=== PATIENT | female | born 1965 | race Caucasian/White ===

== ENCOUNTER 2016-09-17 11:17 | Inpatient (IN) | payer MEDICARE, MEDICAID ==
[2016-09-17] MEDS ORDERED: NS 0.9% 1000 ML* 1,000 ML IV ONE (11:56)
[2016-09-17] MEDS ORDERED: LORazepam INJ* 2 MG/ML 1 ML VIAL IV PUSH ONE ×2 (12:12→15:41)
[2016-09-17 12:36] LABS: Hematocrit 42 % (35-47); Hemoglobin 14.2 g/dl (12.0-16.0); Mean Corpuscular HGB Conc 34 g/dl (31-36); Mean Corpuscular Hemoglobin 34 pg (27-31); Mean Corpuscular Volume 101 fL (80-97); Mean Platelet Volume 9 um3 (7.4-10.4); Red Blood Count 4.15 10^6/ul (4.0-5.4); Red Cell Distribution Width 14 % (10.5-15); White Blood Count 6.8 10^3/ul (3.5-10.8)
[2016-09-17 12:54] LABS: ALT 14 U/L (7-52); AST 25 U/L (13-39); Albumin 4.6 g/dL (3.2-5.2); Alkaline Phosphatase 78 U/L (34-104); Anion Gap 12 mmol/L (2-11); BUN/Creatinine Ratio 13.2 (8-20); Blood Urea Nitrogen 12 mg/dL (6-24); CO2 Carbon Dioxide 21 mmol/L (22-32); Calcium 9.9 mg/dL (8.6-10.3); Chloride 103 mmol/L (101-111); Creatine Kinase 1417 U/L (10-223); EGFR African American 84.2 (>60); EGFR Non-African American 65.4 (>60); Globulin 3.3 g/dL (2-4); Glucose 114 mg/dL (70-100); Potassium 3.3 mmol/L (3.5-5.0); Sodium 136 mmol/L (133-145); Total Protein 7.9 g/dL (6.4-8.9)
[2016-09-17 13:14] LABS: Acetaminophen < 15 mcg/mL; Alcohol < 10 mg/dL (<10); Salicylate < 2.50 mg/dL (<30)
[2016-09-17] MEDS ORDERED: NS 0.9% 1000 ML* 2,000 ML IV ONE (13:21)
[2016-09-17 13:24] LABS: TSH (Thyroid Stimulating Horm) 0.38 mcIU/mL (0.34-5.60)
--- NOTE | 2016-09-17 13:37 | RAD ---
INDICATION: Shortness of breath. COMPARISON: There are no prior studies available for comparison. TECHNIQUE: Dual-energy PA and lateral views of the chest were obtained. FINDINGS: The heart is within normal limits in size. Mediastinal and hilar contours appear within normal limits. The lungs are hyperinflated and clear. There is a surgical suture line present at the left pulmonary apex. There is mild flattening of the diaphragms. No pleural effusion or pneumothorax is seen. IMPRESSION: 1. FINDINGS CONSISTENT WITH COPD, NO EVIDENCE FOR ACUTE FINDING. 2. POSTSURGICAL CHANGES.
[2016-09-17] MEDS ORDERED: Potassium Chlor TAB* 20 MEQ TAB.ER PO ONE (15:36)
[2016-09-17 18:03] LABS: Urine Bacteria Absent (Absent); Urine Bilirubin Negative (Negative); Urine Glucose 1+(50 mg/dL) (Negative); Urine Nitrite Negative (Negative)
[2016-09-17 18:04] LABS: Benzodiazepine Urine Screen None Detected (None Detect)
--- NOTE | 2016-09-17 18:48 | ED ---
Maria Luz Rubi Edward, scribed for Gordon Nicole MD on 09/17/16 at 1157 . Psychiatric Complaint - HPI Summary HPI Summary: 51 y/o female presents to ED c/o SI and SOB. Patient states she "doesn't want to live". Patient's SOB started last night but got worse about an hour ago. Associated sx: CP on the left side that started a while ago, loss of appetite, sleep disturbance. Denies that she hears voices. Patient is a smoker and uses EtOH. No drug use. PMHx collapsed L lung, asthma, COPD and depression. No [place] history. SHx lung repair. Patient is allergic to aspirin. - History Of Current Complaint Chief Complaint: EDMentalHealth Time Seen by Provider: 09/17/16 11:48 Hx Obtained From: Patient Onset/Duration: Gradual Onset, Still Present Timing: Constant Character: Depressed - SI Associated Signs And Symptoms: Positive: Sleep Disturbance, Appetite Change Has Suicidal: Reports: Thoughts - Allergies/Home Medications Allergies/Adverse Reactions: Allergies Allergy/AdvReac Type Severity Reaction Status Date / Time Aspirin Allergy Intermediate Hives Verified 09/17/16 12:06 PMH/Surg Hx/FS Hx/Imm Hx Previously Healthy: No Cardiovascular History: Denies: Hx Myocardial Infarction Respiratory History: Reports: Hx Asthma, Hx Chronic Obstructive Pulmonary Disease (COPD) Psychiatric History: Reports: Hx Depression Infectious Disease History: Denies: Traveled Outside the [place] in Last 30 Days - Family History Known Family History: Positive: Hypertension - Mother, Other - Leukemia (mother) - Social History Alcohol Use: Occasionally Hx Substance Use: No Substance Use Type: Reports: None Hx Tobacco Use: Yes Smoking Status (MU): Current Every Day Smoker Type: Cigarettes Review of Systems Constitutional: Negative Eyes: Negative ENT: Negative Positive: Chest Pain Positive: Shortness Of Breath Gastrointestinal: Negative Genitourinary: Negative Musculoskeletal: Negative Skin: Negative Neurological: Negative Psychological: Other Positive: Depressed - SI, Other - Loss of appetite and sleep disturbance. Denies that she hears voices All Other Systems Reviewed And Are Negative: Yes Physical Exam - Summary Physical Exam Summary: The patient is well-nourished in mild distress and in no acute pain. The skin is warm and skin color reflects adequate perfusion. The patient is slightly diaphoretic. There is no cyanosis. HEENT: The head is normocephalic and atraumatic. The pupils are equal and reactive. The conjunctivae are clear and without drainage. Nares are patent and without drainage. Mouth reveals moist mucous membranes and the throat is without erythema and exudate. The external ears are intact. The ear canals are patent and without drainage. The tympanic membranes are intact. Neck is supple with full range of motion and non-tender. There is no subcutaneous air. There is no neck vein distension. Respiratory: Chest is non-tender. There are decreased breath sounds in the L lung. The R lung is clear. Cardiovascular: Hear is regular rate and rhythm. There is no murmur or rub auscultated. There is no peripheral edema and pulses are symmetrical and equal. Abdomen: The abdomen is soft and non-tender. There are normal bowel sounds heard in all four quadrants and there is no organomegaly palpated. Musculoskeletal: There is no back pain noted. Extremities are non-tender with full range of motion. There is good capillary refill. There is no peripheral edema or calf tenderness elicited. Neurological: Patient is alert and oriented to person, place and time. The patient has symmetrical motor strength in all four extremities. Cranial nerves are grossly intact. Deep tendon reflexes are symmetrical and equal in all four extremities. Psychiatric: The patient has an appropriate affect but is depressed. Triage Information Reviewed: Yes Vital Signs On Initial Exam: Initial Vitals Temp Pulse Resp BP Pulse Ox 98.3 F 95 24 100/60 100 09/17/16 11:32 09/17/16 11:32 09/17/16 11:32 09/17/16 11:32 09/17/16 11:32 Vital Signs Reviewed: Yes Diagnostics - Vital Signs Vital Signs Temp Pulse Resp BP Pulse Ox 09/17/16 11:32 98.3 F 95 24 100/60 100 - Laboratory Lab Results: Lab Results 09/17/16 09/17/16 09/17/16 Range/Units 12:20 12:20 12:20 WBC 6.8 (3.5-10.8) 10^3/ul RBC 4.15 (4.0-5.4) 10^6/ul Hgb 14.2 (12.0-16.0) g/dl Hct 42 (35-47) % MCV 101 H (80-97) fL MCH 34 H (27-31) pg MCHC 34 (31-36) g/dl RDW 14 (10.5-15) % Plt Count 306 (150-450) 10^3/ul MPV 9 (7.4-10.4) um3 Neut % (Auto) 52.4 (38-83) % Lymph % (Auto) 40.6 (25-47) % [place] % (Auto) 6.2 (1-9) % Eos % (Auto) 0.2 (0-6) % Baso % (Auto) 0.6 (0-2) % Absolute Neuts (auto) 3.5 (1.5-7.7) 10^3/ul Absolute Lymphs (auto) 2.8 (1.0-4.8) 10^3/ul Absolute Monos (auto) 0.4 (0-0.8) 10^3/ul Absolute Eos (auto) 0 (0-0.6) 10^3/ul Absolute Basos (auto) 0 (0-0.2) 10^3/ul Absolute Nucleated RBC 0 10^3/ul Nucleated RBC % 0.1 INR (Anticoag Therapy) (0.89-1.11) Sodium 136 (133-145) mmol/L Potassium 3.3 L (3.5-5.0) mmol/L Chloride 103 (101-111) mmol/L Carbon Dioxide 21 L (22-32) mmol/L Anion Gap 12 H (2-11) mmol/L BUN 12 (6-24) mg/dL Creatinine 0.91 (0.51-0.95) mg/dL Est GFR ( Amer) 84.2 (>60) Est GFR (Non-Af Amer) 65.4 (>60) BUN/Creatinine Ratio 13.2 (8-20) Glucose 114 H (70-100) mg/dL Calcium 9.9 (8.6-10.3) mg/dL Total Bilirubin 0.50 (0.2-1.0) mg/dL AST 25 (13-39) U/L ALT 14 (7-52) U/L Alkaline Phosphatase 78 (34-104) U/L Total Creatine Kinase 1417 H (10-223) U/L Troponin I 0.00 (<0.04) ng/mL B-Natriuretic Peptide 62 ( - 100) pg/mL Total Protein 7.9 (6.4-8.9) g/dL Albumin 4.6 (3.2-5.2) g/dL Globulin 3.3 (2-4) g/dL Albumin/Globulin Ratio 1.4 (1-3) TSH 0.38 (0.34-5.60) mcIU/mL Urine Color Urine Appearance Urine pH (5-9) Ur Specific [place] (1.010-1.030) Urine Protein (Negative) Urine Ketones (Negative) Urine Blood (Negative) Urine Nitrate (Negative) Urine Bilirubin (Negative) Urine Urobilinogen (Negative) Ur Leukocyte Esterase (Negative) Urine WBC (Auto) (Absent) Urine RBC (Auto) (Absent) Ur Squamous Epith Cells (Absent) Urine Bacteria (Absent) Urine Glucose (Negative) Salicylates < 2.50 (<30) mg/dL Urine Opiates Screen (None Detect) Acetaminophen < 15 mcg/mL Ur Barbiturates Screen (None Detect) Ur Phencyclidine Scrn (None Detect) Ur Amphetamines Screen (None Detect) U Benzodiazepines Scrn (None Detect) Urine Cocaine Screen (None Detect) U Cannabinoids Screen (None Detect) Serum Alcohol < 10 (<10) mg/dL 09/17/16 09/17/16 09/17/16 Range/Units 12:20 16:24 17:26 WBC (3.5-10.8) 10^3/ul RBC (4.0-5.4) 10^6/ul Hgb (12.0-16.0) g/dl Hct (35-47) % MCV (80-97) fL MCH (27-31) pg MCHC (31-36) g/dl RDW (10.5-15) % Plt Count (150-450) 10^3/ul MPV (7.4-10.4) um3 Neut % (Auto) (38-83) % Lymph % (Auto) (25-47) % [place] % (Auto) (1-9) % Eos % (Auto) (0-6) % Baso % (Auto) (0-2) % Absolute Neuts (auto) (1.5-7.7) 10^3/ul Absolute Lymphs (auto) (1.0-4.8) 10^3/ul Absolute Monos (auto) (0-0.8) 10^3/ul Absolute Eos (auto) (0-0.6) 10^3/ul Absolute Basos (auto) (0-0.2) 10^3/ul Absolute Nucleated RBC 10^3/ul Nucleated RBC % INR (Anticoag Therapy) 0.95 (0.89-1.11) Sodium (133-145) mmol/L Potassium (3.5-5.0) mmol/L Chloride (101-111) mmol/L Carbon Dioxide (22-32) mmol/L Anion Gap (2-11) mmol/L BUN (6-24) mg/dL Creatinine (0.51-0.95) mg/dL Est GFR ( Amer) (>60) Est GFR (Non-Af Amer) (>60) BUN/Creatinine Ratio (8-20) Glucose (70-100) mg/dL Calcium (8.6-10.3) mg/dL Total Bilirubin (0.2-1.0) mg/dL AST (13-39) U/L ALT (7-52) U/L Alkaline Phosphatase (34-104) U/L Total Creatine Kinase 984 H (10-223) U/L Troponin I (<0.04) ng/mL B-Natriuretic Peptide ( - 100) pg/mL Total Protein (6.4-8.9) g/dL Albumin (3.2-5.2) g/dL Globulin (2-4) g/dL Albumin/Globulin Ratio (1-3) TSH (0.34-5.60) mcIU/mL Urine Color Yellow Urine Appearance Clear Urine pH 6.0 (5-9) Ur Specific [place] 1.021 (1.010-1.030) Urine Protein Negative (Negative) Urine Ketones Trace H (Negative) Urine Blood Negative (Negative) Urine Nitrate Negative (Negative) Urine Bilirubin Negative (Negative) Urine Urobilinogen Negative (Negative) Ur Leukocyte Esterase Trace H (Negative) Urine WBC (Auto) Trace(0-5/hpf) (Absent) Urine RBC (Auto) Absent (Absent) Ur Squamous Epith Cells Present H (Absent) Urine Bacteria Absent (Absent) Urine Glucose 1+(50 mg/dl) H (Negative) Salicylates (<30) mg/dL Urine Opiates Screen (None Detect) Acetaminophen mcg/mL Ur Barbiturates Screen (None Detect) Ur Phencyclidine Scrn (None Detect) Ur Amphetamines Screen (None Detect) U Benzodiazepines Scrn (None Detect) Urine Cocaine Screen (None Detect) U Cannabinoids Screen (None Detect) Serum Alcohol (<10) mg/dL 09/17/16 Range/Units 17:26 WBC (3.5-10.8) 10^3/ul RBC (4.0-5.4) 10^6/ul Hgb (12.0-16.0) g/dl Hct (35-47) % MCV (80-97) fL MCH (27-31) pg MCHC (31-36) g/dl RDW (10.5-15) % Plt Count (150-450) 10^3/ul MPV (7.4-10.4) um3 Neut % (Auto) (38-83) % Lymph % (Auto) (25-47) % [place] % (Auto) (1-9) % Eos % (Auto) (0-6) % Baso % (Auto) (0-2) % Absolute Neuts (auto) (1.5-7.7) 10^3/ul Absolute Lymphs (auto) (1.0-4.8) 10^3/ul Absolute Monos (auto) (0-0.8) 10^3/ul Absolute Eos (auto) (0-0.6) 10^3/ul Absolute Basos (auto) (0-0.2) 10^3/ul Absolute Nucleated RBC 10^3/ul Nucleated RBC % INR (Anticoag Therapy) (0.89-1.11) Sodium (133-145) mmol/L Potassium (3.5-5.0) mmol/L Chloride (101-111) mmol/L Carbon Dioxide (22-32) mmol/L Anion Gap (2-11) mmol/L BUN (6-24) mg/dL Creatinine (0.51-0.95) mg/dL Est GFR ( Amer) (>60) Est GFR (Non-Af Amer) (>60) BUN/Creatinine Ratio (8-20) Glucose (70-100) mg/dL Calcium (8.6-10.3) mg/dL Total Bilirubin (0.2-1.0) mg/dL AST (13-39) U/L ALT (7-52) U/L Alkaline Phosphatase (34-104) U/L Total Creatine Kinase (10-223) U/L Troponin I (<0.04) ng/mL B-Natriuretic Peptide ( - 100) pg/mL Total Protein (6.4-8.9) g/dL Albumin (3.2-5.2) g/dL Globulin (2-4) g/dL Albumin/Globulin Ratio (1-3) TSH (0.34-5.60) mcIU/mL Urine Color Urine Appearance Urine pH (5-9) Ur Specific [place] (1.010-1.030) Urine Protein (Negative) Urine Ketones (Negative) Urine Blood (Negative) Urine Nitrate (Negative) Urine Bilirubin (Negative) Urine Urobilinogen (Negative) Ur Leukocyte Esterase (Negative) Urine WBC (Auto) (Absent) Urine RBC (Auto) (Absent) Ur Squamous Epith Cells (Absent) Urine Bacteria (Absent) Urine Glucose (Negative) Salicylates (<30) mg/dL Urine Opiates Screen None detected (None Detect) Acetaminophen mcg/mL Ur Barbiturates Screen None detected (None Detect) Ur Phencyclidine Scrn None detected (None Detect) Ur Amphetamines Screen None detected (None Detect) U Benzodiazepines Scrn None detected (None Detect) Urine Cocaine Screen None detected (None Detect) U Cannabinoids Screen Presumptive positive H (None Detect) Serum Alcohol (<10) mg/dL Result Diagrams: 09/17/16 12:20 09/17/16 12:20 Lab Statement: Any lab studies that have been ordered have been reviewed, and results considered in the medical decision making process. - Radiology CXR Xray Interpretation: Positive (See Comments) - 1. FINDINGS CONSISTENT WITH COPD , NO EVIDENCE FOR ACUTE FINDING. 2. POSTSURGICAL CHANGES. Radiology Interpretation Completed By: Radiologist - EKG 1 EKG Interpretation: 12:06 - Regular rhythm. Normal axis, no ST abnormalities Course/Dx - Course Assessment/Plan: 51 y/o female presents to ED c/o SI and SOB. Patient states she "doesn't want to live". EKG - 12:06 - Regular rhythm. Normal axis, no ST abnormalities. CXR showed 1. FINDINGS CONSISTENT WITH COPD, NO EVIDENCE FOR ACUTE FINDING. 2. POSTSURGICAL CHANGES. pt was administered normal saline x 3000ml with decreased ck with no renal failure. Patient was medically cleared for MHU evaluation by Dr. Gordon Nicole @ 17:17. Pending MHU evalutaion. - Differential Dx/Clinical Impression Differential Diagnosis/HQI/PQRI: Positive: Depression, Suicidal Ideation, Other - pneumothorax, rhabdomylosis Provider Diagnosis: Depression, Dehydration, Rhabdomyolysis, Hypokalemia Provider Diagnosis: (Ruled Out): Hyponatremia Discharge - Discharge Plan Condition: Stable Disposition: OTHER Discharge Disposition Comment: pending MHE Patient Education Materials: Depression (ED), Dehydration (ED) Referrals: Eliud Albert MD [Primary Care Provider] - The documentation as recorded by the Maria Luz casillas Edward accurately reflects the service I personally performed and the decisions made by Corey veras Drew, MD.
[2016-09-17] MEDS ORDERED: LORazepam TAB(*) 1 MG PO ONE (20:27)
[2016-09-17] MEDS ORDERED: LORazepam TAB(*) 1 MG ONE (20:30)
[2016-09-18] MEDS ORDERED: Al Hydrox/Mg Hydrox/Simet LIQ* 30 ML UDC PO PRN (04:38)
[2016-09-18] MEDS ORDERED: Acetaminophen TAB* 325 MG PO PRN (04:38)
[2016-09-18] MEDS ORDERED: Mouth Piece, Nicotine* 1 EACH CARTRIDGE INH SCH (04:38)
[2016-09-18] MEDS: QUEtiapine TAB* 25 MG PO SCH ×2 (06:25→20:04)
[2016-09-18] MEDS: Vitamin THERAPEUTIC TAB PO SCH (09:46)
--- NOTE | 2016-09-18 10:14 | ED ---
Elvie Rubi Rebecca, scribed for Tatiana Blount MD on 09/17/16 at 2030 . Progress - Progress Note Progress Note: Pt was signed out from Dr. Nicole at 1900, pending dispo, awaiting MHE. Discussed with the charge nurse, Soheila, concerning administration of Ativan prior to her MHE which should not interfere with the proceeding evaluation. Course/Dx - Course Course Of Treatment: Pt signed out from Dr. Nicole at 1900, pending MHE. Discussed with the mental health manager power who relayed the informatin that during the MHE, pt opted for voluntary admission due to SIs. Admission papers were signed. - Diagnoses Provider Diagnoses: Depression, Dehydration, Rhabdomyolysis, Hypokalemia The documentation as recorded by the Elvie casillas Rebecca accurately reflects the service I personally performed and the decisions made by , Tatiana Blount MD.
[2016-09-18] MEDS: Nicotine Inhaler* 10 MG AMP INH PRN (12:55)
[2016-09-18] MEDS: FLUoxetine CAP* 20 MG PO SCH (13:23)
[2016-09-18] MEDS: Carisoprodol TAB* 350 MG PO PRN ×2 (13:24→20:03)
[2016-09-18] MEDS: Nicotine GUM* 2 MG PO PRN ×2 (13:26→17:16)
[2016-09-18] MEDS: hydrOXYzine HCL TAB* 25 MG PO PRN ×2 (14:28→17:50)
[2016-09-18] MEDS: Naproxen TAB* 250 MG PO PRN (14:28)
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
[2016-09-19] MEDS: FLUoxetine CAP* 20 MG PO SCH (08:02)
[2016-09-19] MEDS: Vitamin THERAPEUTIC TAB PO SCH (08:02)
[2016-09-19] MEDS: Carisoprodol TAB* 350 MG PO PRN ×3 (08:04→16:41)
[2016-09-19] MEDS: Nicotine GUM* 2 MG PO PRN ×2 (08:06→12:26)
[2016-09-19] MEDS: hydrOXYzine HCL TAB* 25 MG PO PRN ×3 (08:32→16:41)
[2016-09-19] MEDS: Nicotine Inhaler* 10 MG AMP INH PRN ×2 (12:26→17:46)
--- NOTE | 2016-09-19 16:09 | ADMNOTE ---
Identification - Identify Employment Status: Disabled Hx Psychiatric Hospitalization: No Arrived to Hospital Via: Ambulatory History - Objective HPI: 51 y/o WF came to ED in a state of confusion and disorientation whch cleared up next morning. Apparently she was intoxicated at the time of presentation. She was sobbing and tearful throughout the eval. Reported that her boyfriend of 8 years just broke up with her which was unexpected. She thought her life was over. She doesn't know why he all on sudden decieded to do so. Senieany suicidal or homicidal thoughts. Past Medical History: Chronic back pain Exam Appearance: Thin Framed Hygiene: Normal Grooming: Disheveled Psychomotor Activities: Abnormal-Increased Exhibits Abnormal Movement: No Attitude and Relatedness: Appropriate Eye Contact: Poor - Speech Quality: Unpressured Latencies: Normal Quantity: Appropriate Patient's Decription of Mood: "Terrible" Observed Affect: Tearful Patient's Thought Process: Coherent, Goal Directed Thought Content: No Passive Wish, No Suicidal Planning, No Homicidal Ideation, No Paranoid Ideation Experiencing Hallucinations: No, Sensorium is Clear Type of Hallucinations: Visual: No, Auditory: No, Command: No Level of Consciousness: Alert Orientation: Yes Intact, Yes Orientated to Time, Yes Orientated to Place, Yes Orientated to Person Impulse Control: Intact Insight and Judgement: Poor Impression - Impression Merits Inpatient Hospitalization: Yes - [place] [facility] Mental Illness: Adjustment d/o with depressed mood. R/O substance use d/o - [place] [facility] Medical Illness: Chronic back pain Plan - Treatment Plan Continued Medication Management: Continue Outpt Medication Medications: Current Medications Acetaminophen (Tylenol Tab*) 650 mg PO Q4H PRN PRN Reason: PAIN or TEMP > 101 F Last Admin: 09/18/16 08:52 Dose: 650 mg Al Hydrox/Mg Hydrox/Simethicone (Maalox Plus*) 30 ml PO Q4H PRN PRN Reason: INDIGESTION Carisoprodol (Soma Tab*) 350 mg PO TID PRN PRN Reason: Pain Last Admin: 09/19/16 12:26 Dose: 350 mg Device (Nicotine Mouth Piece*) 1 each INH .[facility] Last Admin: 09/18/16 12:55 Dose: 1 each Fluoxetine HCl (Prozac Cap*) 20 mg PO DAILY [facility] Last Admin: 09/19/16 08:02 Dose: 20 mg Hydroxyzine HCl (Atarax Tab*) 25 mg PO Q4H PRN PRN Reason: AGITATION/ANXIETY/INSOMNIA Last Admin: 09/19/16 12:27 Dose: 25 mg Multivitamins (Theragran Tab*) 1 tab PO DAILY [facility] Last Admin: 09/19/16 08:02 Dose: 1 tab Naproxen (Naprosyn Tab*) 500 mg PO Q12H PRN PRN Reason: Back pain Last Admin: 09/18/16 14:28 Dose: 500 mg Nicotine (Nicotine Inhaler*) 10 mg INH Q2H PRN PRN Reason: CRAVING Last Admin: 09/19/16 12:26 Dose: 10 mg Nicotine Polacrilex (Nicotine Gum*) 2 mg PO Q2H PRN PRN Reason: CRAVING Last Admin: 09/19/16 12:26 Dose: 2 mg Quetiapine Fumarate (Seroquel Tab*) 25 mg PO BEDTIME [facility] Last Admin: 09/18/16 20:04 Dose: 25 mg - Discharge Plan Discharge Plan: Outpatient Follow Up Outpatient Program: [facility]
[2016-09-19] MEDS: QUEtiapine TAB* 25 MG PO SCH (20:15)
[2016-09-19] MEDS: Naproxen TAB* 250 MG PO PRN (20:16)
[2016-09-20] MEDS: Carisoprodol TAB* 350 MG PO PRN ×2 (07:47→11:49)
[2016-09-20] MEDS: Naproxen TAB* 250 MG PO PRN (07:47)
[2016-09-20] MEDS: Vitamin THERAPEUTIC TAB PO SCH (07:48)
[2016-09-20] MEDS: hydrOXYzine HCL TAB* 25 MG PO PRN ×2 (07:48→11:49)
[2016-09-20] MEDS: FLUoxetine CAP* 20 MG PO SCH (07:48)
[2016-09-20 08:11] VITALS: BP 131/78
--- NOTE | 2016-09-20 11:25 | PN ---
MHU: Group Therapy Note - Service Type Service Type: 44825 Group Psychotherapy - Cognitive Behavioral Group Therapy ( CBT):Patient was attentive and participatory in CBT programming this morning, and remained in good behavioral control. Patient expressed positive insights regarding relevant treatment interventions and goals.
--- NOTE | 2016-09-20 15:32 | DS ---
DATE OF ADMISSION: 09/18/2016. DATE OF DISCHARGE: 09/20/2016. DISCHARGE DIAGNOSES: AXIS I: Unspecified depressive disorder, rule out adjustment disorder with depressed mood versus de pressive disorder secondary to opioid abuse; benzodiazepine use disorder; opioid use disorder. AXIS II: Deferred. AXIS III: Chronic back pain, history of pneumothorax, COPD. AXIS IV: Severe, primary support stressors. AXIS V: At the time of admission was 30 and at the time of discharge is 60. CONDITION AT THE TIME OF DISCHARGE: The patient is calm and cooperative. She is sober. She is анна erating her new antidepressant medication quite well and she is willing to follow-up with outpatient resources in the community. The patient has acknowledged that she has been misutilizing her opioid and benzodiazepine medications. She has follow-ups in place at [facility] for [facility] [place] [place] [facility] mental health services. The patient steadfastly denies any thoughts of harm ing herself. She has been safe on all checks and is requesting discharge at this time. MENTAL STATUS EXAMINATION AT THE TIME OF DISCHARGE: The patient is a middle-aged, white female, ruma earing to be somewhat older than her stated age who is clean, well- groomed, calm, cooperative, expr essive. She makes good eye contact. Speech has a normal rate, tone and volume. Mood is euthymic w ith a full affect. Thought process is linear and goal-directed. Thought content is significant for her desire to leave the hospital. She denies suicide or homicidal ideation. She denies auditory o r visual hallucinations. Insight and judgment is fair given [facility]. DISCHARGE INSTRUCTIONS TO THE PATIENT: A. Medications: She takes Soma 350 mg t.i.d. as a prn for pain, Fluoxetine 20 mg p.o. daily, Napro xen 500 mg p.o. b.i.d., and Seroquel 25 mg p.o. b.i.d. B. Diet: Regular. C. Activities: As tolerated. The patient is strongly encouraged to abstain from tobacco products; however, she is declining continued nicotine replacement therapy indicating her preference to vashti nue smoking at this time. There are no laboratory or diagnostic studies pending at the time of disc harge. D. Follow-up care: The patient will follow-up at the [facility] within o ne week of discharge. HOSPITAL COURSE - PART A: Reason for admission: The patient is a 51-year-old, single, disabled, [place] female with a history of depression, as well as alcohol, cannabis, opioid and benzodiazepine use who arrived at the hospital in a state of confusion and simultaneously endorsing suicidal ideati ons with thoughts of perhaps driving her car off the road. The patient reported that she broke up w ith her boyfriend of eight years several days prior to admission. She was upset, depressed, and melanie pondent, having difficulty thinking rational thoughts. She indicates that she did start having some thoughts of harming herself, however did not have any specific plan. She was able to call the [facility] and they sent a squad car to bring her to the emergency room where she was found to be restless, shaking and confused at times. She was clearly anxious, tremulous, and tearful. She reported that she was upset that her boyfriend had left her and she was not sure what her future would entail. Sh e indicated that recently she had been having crying spells, feeling helpless, worthless and hopeles s. It was only about two days prior that she started having some suicidal ideations. The patient a lso told us at the time of admission that she had gone 48 hours without her Percocet or her Klonopin because they had accidentally fell into her toilet and she could not retrieve them. HOSPITAL COURSE - PART B: Psychiatric treatment rendered: The patient was admitted to the [facility] where she was placed on q.15 minute checks for her own safety. We continued med ication with Seroquel and Soma as previously prescribed, but we replaced Pristiq with Fluoxetine 20 mg daily. We also discontinued her Klonopin and Oxycodone, believing that these were most likely be ing misused. I was able to leave a message with her pain clinic provider, Dr. Ramiro Gutierrez, from [place]. In addition, I tried to reach her primary care aids social worker, Dr. Eliud Albert, from [place], [place], but was unsuccessful reaching this provider. When the patient sobered up, she shanon ost immediately experienced a resolution of her suicidal ideations. She was no longer confused and no longer tremulous. She did express some improved insight into her substance abuse issues when she requested refer to an outpatient rehab agency. She was also willing to get outpatient services for mental health given her depression and recent break-up with her boyfriend. The patient has been st eadfastly denying any suicidal ideations throughout this hospitalization. She states that she is antonieta k to her baseline and by all appearances she seems to be thinking clearly. I have cautioned her aga inst further use of benzodiazepines and opioids, as well as alcohol and cannabis. She is continuing to endorse that she is willing to go to substance abuse treatment at [facility]. [id number]/CPS #: [id number]
== END 2016-09-20 12:45 | disposition home or self-care (01) | DRG 881 ==
LOC: EEVIPCON 11:17 → ED 11:17 → BSU 09-18 04:29
PROVIDERS: ADMIT Psychiatry & Neurology Psychiatry; ATTEND Psychiatry & Neurology Psychiatry
DX: F32.9 Major depressive disorder, single episode, unspecified (principal); R45.851 Suicidal ideations; F11.10 Opioid abuse, uncomplicated; F19.10 Other psychoactive substance abuse, uncomplicated; J44.9 Chronic obstructive pulmonary disease, unspecified; M54.89 Other dorsalgia; F17.210 Nicotine dependence, cigarettes, uncomplicated; Z79.891 Long term (current) use of opiate analgesic; Z79.899 Other long term (current) drug therapy; Z88.6 Allergy status to analgesic agent
CPT/HCPCS: 36415; 71020; 80053; 80307; 80320; 80329; 81003; 81015; 82550; 83880; 84443; 84484; 85025; 85610; 87086; 90853; 93005; 99222; 99238; A9270-GY; G0480; J2060